=== PATIENT | male | born 1950 | race Caucasian/White ===

== ENCOUNTER 2019-10-27 10:55 | Outpatient (CLI) | payer MEDICARE, BC ==
--- NOTE | 2019-10-27 15:55 | CT Report ---
Reason: TOBACCO ABUSE Procedure Date: 10/27/2019 Accession Number: [id number] / [id number] Procedure: CT - Low Dose Lung Cancer Screen CPT Code: Final Report FULL RESULT: EXAM CT LUNG SCREEN EXAM DATE: 10/27/2019 11:18 AM. HISTORY: 69-year-old patient with [id number] smoking history. Currently smoking: No. Years since quittin years. COMPARISON: None. TECHNIQUE: CT examination of the entire thorax without contrast was performed using low-dose technique. Thin section coronal, axial, sagittal and MIP axial images were obtained. In accordance with CT protocol optimization, one or more of the following dose reduction techniques were utilized for this exam: automated exposure control, adjustment of mA and/or KV based on patient size, or use of iterative reconstructive technique. FINDINGS: Nodules: Right upper lobe: None. Right middle lobe: None. Right lower lobe: None. Left upper lobe: Inferior 2 mm left fissural nodule, image 87, series 4. Left lower lobe: None. Emphysema: Mild emphysematous changes. Pleura: Unremarkable. Aorta: Minimal calcified plaque in the thoracic aorta. No aneurysm. Mediastinum: Normal heart size. Trace pericardial effusion. Tiny hiatal hernia. No enlarged mediastinal or hilar lymph nodes. Calcified right hilar and right paratracheal lymph nodes. Visualized thyroid gland is unremarkable. Coronary calcifications: Mild degree of coronary artery calcified plaque. Other pulmonary findings: No endobronchial obstruction. Minimal right middle lobe, lingular and basilar scar/atelectasis. Calcified right upper and left upper lobe granulomas. Other extrapulmonary findings: Included portions of the upper abdomen are unremarkable. Degenerative changes of the thoracic spine. No acute osseous abnormalities. IMPRESSION: Lung-RADS ASSESSMENT CATEGORY: 2 - benign appearance or behavior. Probability of malignancy: Less than 1%. RECOMMENDATION: Follow-up low-dose screening chest CT in 12 months. RADIA
== END 2019-10-27 10:56 | disposition home or self-care (01) ==
LOC: DI 10:55
PROVIDERS: ATTEND Internal Medicine
DX: Z12.2 Encounter for screening for malignant neoplasm of respiratory organs (principal); J43.9 Emphysema, unspecified; Z87.891 Personal history of nicotine dependence

== ENCOUNTER 2022-06-06 10:51 | Outpatient (CLI) | payer MEDICARE, BC ==
--- NOTE | 2022-06-06 11:53 | CT Report ---
PROCEDURE: Low Dose Lung Cancer Screen INDICATIONS: SMOKER TECHNIQUE: Noncontrast low-dose axial images were acquired from the pulmonary apices to the posterior costophren ic angles. Multiplanar MIP reformats were then reconstructed. For radiation dose reduction, the follo wing was used: automated exposure control, adjustment of mA and/or kV according to patient size. COMPARISON: CT lung cancer screening 10/27/2021 mild coronary artery calcifications.. FINDINGS: Image quality: Excellent. Lungs and pleura: Small calcified granuloma in the left upper lobe. No significant pulmonary nodules . No mass. No acute airspace opacity. Central airways are clear. No pleural effusion. No pneumothorax . Mediastinum: Heart size is normal. No pericardial effusion. No mediastinal adenopathy by size crit eria. Small calcified mediastinal lymph nodes. Thoracic aorta and central pulmonary arteries are norm al in size. Esophagus is normal in caliber. No hiatal hernia. Bones and chest wall: No suspicious bony lesions. No vertebral body compression fractures. No axil tabitha or supraclavicular adenopathy by size criteria. The thyroid is normal in size and there are no incidental findings. Abdomen: Hypodense focus at the inferior tip of the right lobe of liver measuring 2 cm, (3/73), parti ally visualized. This is outside the field of view on the prior CT. No adrenal nodule. IMPRESSION: 1. No significant pulmonary nodules. Lung RADS 1. Recommend follow-up lung cancer screening chest CT in 12 months. 2. Hypodensity in the inferior right lobe of liver. This is incompletely characterized on this exam b ut most likely represents a cyst or hemangioma. -This could be definitively characterized with multiphase liver CT or MRI. Reviewed by: Markus Grigsby MD on 06/06/2022 11:51 AM PDT Approved by: Markus Grigsby MD on 06/06/2022 11:51 AM PDT Station ID: [id number]
== END 2022-06-06 10:52 | disposition home or self-care (01) ==
LOC: DI 10:51
PROVIDERS: ATTEND Internal Medicine
DX: Z12.2 Encounter for screening for malignant neoplasm of respiratory organs (principal); F17.210 Nicotine dependence, cigarettes, uncomplicated